=== PATIENT | female | born 1940 | race Caucasian/White ===

== ENCOUNTER 2017-05-01 13:06 | Outpatient (CLI) | payer MEDICARE, OTHER ==
--- NOTE | 2017-05-02 09:39 | OP Clinic Progress Note ---
REFERRING PHYSICIAN: Dr. Cecilia Cottrell BRIEF HISTORY: This pleasant 76-year-old lady is seen with complaints of some degree of reduced hearing and a type of tinnitus in both ears, left ear greater than right. She is accompanied by her . She has buzzing and ringing which sounds more like wasps buzzing behind the wall. I asked her several times about the degree of annoyance of this and she says it is getting progressively annoying and it is quite significantly bothersome to her. She cannot really put a number on it as grading it between and 1 and 10 but it has gotten to be significantly annoying. She feels that her balance is okay but she walks moderately poorly. She feels like her hearing might be okay but she clinically has a mild hearing loss. Both ear canals are normal. The left eardrum and particularly the malleus is much more significantly retracted than the right ear, although both are retracted. She does have some degree but a lesser degree of tinnitus or buzzing insect-type of noise. We went over options and choices. She has tried some [id number] anti- ringing medicine and it has not helped. I reviewed the findings of the [employer] that there is no medicine that reduces tinnitus. We discussed a small myringotomy that can sometimes ameliorate or reduce the buzzing and ringing and sometimes can improve balance and sometimes can improve hearing. The patient understands there is no guarantee and way less than a 1% chance that the myringotomy would not heal. The patient feels that she digested the information well and her reviewed this with her. The patient decided to give this a try. With topical phenol anesthesia, I made an anterior curvilinear myringotomy. There was a significant amount of pressure and tension that came off the eardrum. A small paper patch was placed over this. Symptomatically, as far as the buzzing and the flying insect-type of noise, it did not improve immediately. However, the patient stated that she could hear quite significantly better in that left ear. All sounds were both clearer and louder. In addition, her neck discomfort with the tenderness in the suboccipital or the submastoid area that was present much more on the left side than on the right was also markedly improved. Her balance may be very mildly improved. Although the primary complaint of quite significantly bothersome tinnitus has not immediately improved, the patient's hearing has improved. Her neck discomfort has improved and to a small degree, her walk has improved. PLAN: I went over aural hygiene. I will see her back in a month. Usually there is a small scab that needs to get debrided and cleaned and it can either be debrided or cleaned then or if it is too tightly attached, in a month in follow up. Dr. Cottrell, I appreciate the opportunity to participating in Myra's care. She will otherwise return to you and I will see her as noted above. Sincerely, cc: Dr. Cecilia NASSAR
== END 2017-05-01 13:07 ==
LOC: ENT 13:06
PROVIDERS: ATTEND Otolaryngology
DX: H93.13 Tinnitus, bilateral (principal); H91.93 Unspecified hearing loss, bilateral
CPT/HCPCS: 69420; G0463

== ENCOUNTER 2017-06-05 13:21 | Outpatient (CLI) | payer MEDICARE, OTHER ==
--- NOTE | 2017-06-06 13:07 | OP Clinic Progress Note ---
REASON FOR VISIT: This 76-year-old lady is seen in follow up of at least a year of left-sided dense fullness in the left ear and a droning-type of tinnitus. About 3 weeks ago, I did a left-sided myringotomy. The malleus of umbo markedly medially retracted creating a "V" in the tympanum. When it was done, it still did not change the tinnitus but did increase her hearing. She felt like things were significantly louder. In the interval, she has slowly developed some pounding-type of tinnitus. She notices it after she goes to bed and in the morning but it dissipates later in the day. There is still a healing scab on the left eardrum. The malleus is still medially deviated. I put some antibiotic ointment on the hard scab in the anterior quadrant of the eardrum. I believe it needs to be softened somewhat and it looks like it is just lifting off the eardrum. The myringotomy itself appears to be well healed. PLAN: In this case, the patient's symptoms have not changed significantly. I reviewed these issues with her and her . I will see her back in about a month. cc: Dr. Cecilia NASSAR
== END 2017-06-05 13:22 ==
LOC: ENT 13:21
PROVIDERS: ATTEND Otolaryngology
DX: H93.12 Tinnitus, left ear (principal)
CPT/HCPCS: G0463

== ENCOUNTER 2017-07-10 13:46 | Outpatient (CLI) | payer MEDICARE, OTHER ==
--- NOTE | 2017-07-11 10:18 | OP Clinic Progress Note ---
REASON FOR VISIT: Myra is bothered by a left greater than right tinnitus. The tinnitus has some degree of pulsatileness to it. This can either be a tight eardrum that she has had a myringotomy for to relieve some of the visual pressure and tension of the eardrum. Nevertheless, the patient has not improved. More accurately, she describes the tinnitus as being pulsatile. Listening to her heart, I do not hear any abnormal heart sounds. I do not hear any bruits. There is just a trace of a bruit on the left side that clinically I would not have thought to be significant. On the right side, I do not hear any, again, with using a stethoscope with both bells. PLAN: I think, although she is not really suspicious for carotid disease, but with a pulsatile description of the sound, I think she ought to get a Doppler study and if she agrees, I have asked her to get that study. Copies should be sent to Dr. Cecilia Cottrell. The level of the tinnitus as far as subjective concerns is not at a high level. She had more curiosity and a nonsevere level of annoyance as a general description. It is somewhat difficult to get a verbal response from her regarding the degree of annoyance of this issue. If she gets that study, I will see her back and review it with her. cc: Dr. Cecilia NASSAR
== END 2017-07-10 13:47 ==
LOC: LAB 13:46 → ENT 13:47
PROVIDERS: ATTEND Otolaryngology
DX: H93.A3 Pulsatile tinnitus, bilateral (principal)
CPT/HCPCS: G0463

== ENCOUNTER 2017-07-15 10:19 | Outpatient (CLI) | payer MEDICARE, OTHER ==
--- NOTE | 2017-07-15 11:46 | Diagnostic Imaging Report ---
CALEB GUZMAN [facility] [address] [facility].[address] [id number] Report Submission Date: Jul 15, 2017 11:02:49 AM CDT Patient Study Name: RADHA GRIMES Date: Jul 15, 2017 10:34:08 AM CDT Modality Type: US Gender: F Description: DPLX SCN XTRCRAN ART CMP ERIBERTO : 40 Institution: [facility] Physician: CALEB GUZMAN Examination: Carotid artery ultrasound History: Pulsatile tinnitus Comparison exams: None available Findings: Right carotid: Common carotid artery peak systolic velocity 76.5 cm/s; end diastolic velocity 24.1 cm/s. Internal carotid artery peak systolic bnnflhuo83.4 cm/s; end diastolic velocity 33.7 cm/s. External carotid artery velocity to 76.1 cm/s. Vertebral artery velocity 55.1 cm/s Vertebral flow antegrade. Normal waveforms. No occlusive plaquing. Left carotid: Common carotid artery peak systolic velocity 81.6 cm/s; end diastolic velocity 31.1 cm/s. Internal carotid artery peak systolic velocity 90.4 cm/s; end diastolic velocity 39.9 cm/s. External carotid artery velocity to 75.3 cm/s. Vertebral artery velocity 55.5 cm/s Vertebral flow antegrade. Normal waveforms. No occlusive plaquing. Right ICA/CCA Ratio: 0.9 Left ICA/CCA Ratio 1.1 Impression: Carotids ratios not elevated. No restriction to hemodynamic flow. Electronically signed on Jul 15, 2017 11:02:49 AM CDT by: Ajay NASSAR
== END 2017-07-15 10:20 ==
LOC: RAD 10:19
PROVIDERS: ATTEND Otolaryngology
DX: H93.A9 Pulsatile tinnitus, unspecified ear (principal)
CPT/HCPCS: 93880

== ENCOUNTER 2017-07-17 12:53 | Outpatient (CLI) | payer MEDICARE, OTHER ==
--- NOTE | 2017-07-18 09:51 | OP Clinic Progress Note ---
REASON FOR VISIT: I have seen Myra several times with her left-sided ear symptoms. Last time, she was emphasizing more the pulsatile nature of it than she had initially. At the last visit, I carefully auscultated her heart and both carotids and I could hear no bruits on either side. The Doppler study was done and that was essentially normal and particular good for the patient's age. The eardrum appears to be clear. She really does not have any pain or discomfort in it. The patient states that she is not particularly bothered by these symptoms. They are to some degree a little more bothersome when she first gets up in the morning. I believe that is positional when there is more head pressure from being recumbent. PLAN: The patient is comfortable enough leaving things at this level with no additional workup or treatment. She feels that they are only mildly bothersome and does not feel a need to pursue this further and I think that is the best choice for the patient. All these findings were gone over carefully with her with her in attendance. Patient may return at any time, but she otherwise will return to the good care of Dr. Cecilia Cottrell. cc: Dr. Cecilia NASSAR
== END 2017-07-17 12:54 ==
LOC: ENT 12:53
PROVIDERS: ATTEND Otolaryngology
DX: H92.09 Otalgia, unspecified ear (principal)
CPT/HCPCS: G0463